=== PATIENT | female | born 1995 | race African-American/Black ===

== ENCOUNTER 2020-06-25 12:59 | Outpatient (CLI) | payer OTHER, SELFPAY ==
--- NOTE | ~2020-06-25 | US_ITS ---
EXAMINATION: US venous doppler LE EXAM DATE: 06/25/2020 13:38 INDICATION: Bilateral leg pain. TECHNIQUE: Multiple grayscale, color flow and Doppler images of the lower extremity deep venous syste ms bilaterally were obtained and reviewed. There is no prior study for comparison. FINDINGS: Right side: The right common femoral, femoral and profunda veins demonstrate normal color flow, respi ratory variation, augmentation and compressibility. Compressibility, color flow confirmed within the right popliteal, posterior tibial, peroneal, and greater saphenous veins. Left side: The left common femoral, femoral and profunda veins demonstrate normal color flow, respira tory variation, augmentation and compressibility. Compressibility, color flow confirmed within the l eft popliteal, posterior tibial, peroneal, and greater saphenous veins. IMPRESSION: 1. No lower extremity deep venous thrombosis bilaterally. Reviewed, dictated and finalized at location A.
== END 2020-06-25 13:00 | disposition home or self-care (01) ==
DX: M79.604 Pain in right leg (principal); M79.605 Pain in left leg; Z86.718 Personal history of other venous thrombosis and embolism
CPT/HCPCS: 93970

== ENCOUNTER 2020-07-03 09:29 | Emergency (ER) | payer OTHER, SELFPAY ==
--- NOTE | ~2020-07-03 | US_ITS ---
EXAMINATION: US OB >= 14 weeks Fetus DATE: 07/03/2020 11:07 INDICATION: Vaginal bleeding and second trimester of TECHNIQUE: Real-time ultrasound of the pelvis was performed. The interpreting radiologist was not pre sent for the study. COMPARISON: None. FINDINGS: There is a single living fetus in breech presentation. The placenta is anterior. heart rate is 138 beats per minute (bpm). The amniotic fluid index is 17.3 cm, which is normal (5th%-95%: 9.3-21. 2 cm at 20 weeks estimated gestational age). The following biometric data were obtained: BPD: 4.8 cm -> 20 weeks 4 days Head circumference: 18.0 cm -> 20 weeks 3 days Abdominal circumference: 15.7 cm -> 20 weeks 6 days Femur length: 3.4 cm -> 20 weeks 5 days These measurements are concordant. Head circumference to abdominal circumference ratio: 1.14 (normal range 1.06-1.25). Estimated weight: 373 g (+/-) 56 g. or 13 oz. (+/-) 2 oz. IMPRESSION: 1. Single living fetus in breech presentation with heart rate of 138 bpm. 2. Gestational age by ultrasound of 20 weeks 5 day(s) +/- 1 week(s) 3 day(s) with ultrasound estimate d date of delivery (LAUREN) of 11/15/2020. Estimated weight is 54th percentile by Hadlock criteria when 11/16/2020 is used as the LAUREN. Please correlate with clinical information or earlier ultrasounds for most accurate LAUREN. 3. Normal amniotic fluid index of 17.3 cm. Reviewed, dictated and finalized at location B. IMPRESSION: 1. Single living fetus in breech presentation with heart rate of 138 bpm. 2. Gestational age by ultrasound of 20 weeks 5 day(s) +/- 1 week(s) 3 day(s) wi th ultrasound estimated date of delivery (LAUREN) of 11/15/2020. Estimated we ight is 54th percentile by Hadlock criteria when 11/16/2020 is used as the LAUREN. Please correlate with clinical information or earlier ultrasounds for most accu rate LAUREN. 3. Normal amniotic fluid index of 17.3 cm.
[2020-07-03 09:33] VITALS: BP 138/113; PULSE 105; RESP 18; TEMP 35.8
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
[2020-07-03] MEDS: SODIUM CHLORIDE 0.9% IV 1,000 ML 999 ML IV CONT (10:18)
[2020-07-03 10:22] LABS: Basophils Percent Auto 0.4 % (0.2-1.2); Eosinophils Absolute Auto 0.2 K/mm3 (0-0.3); Hematocrit 39.4 % (37.0-47.0); Hemoglobin 13.2 g/dL (12.0-15.0); Immature Granulocyte Absolute 0.01 K/mm3 (0.00-0.031); Immature Granulocyte Percent A 0.2 % (0-0.5); Lymphocytes Absolute Auto 1.75 K/mm3 (0.9-3.2); Lymphocytes Percent Auto 33.1 % (18.3-44.2); Mean Corpuscular HGB Conc 33.5 g/dl (32-36); Mean Corpuscular Hemoglobin 30.8 pg (26-34); Mean Corpuscular Volume 92.1 fl (80-100); Mean Platelet Volume 9.9 fl (7.4-10.4); Monocytes Absolute Auto 0.4 K/mm3 (0.1-0.6); Monocytes Percent Auto 7.4 % (2.6-8.5); Neutrophils Absolute Auto 2.9 K/mm3 (1.3-6.7); Neutrophils Percent Auto 54.9 % (45.5-73.1); Platelet Count Result 195 k/mm3 (150-375); Red Blood Count 4.28 M/mm3 (4.2-5.4); Red Cell Distribution Width 14.3 % (11.5-14.5); White Blood Count 5.3 K/mm3 (4.5-10.0)
[2020-07-03 10:33] LABS: Alanine Aminotransferase 8 U/L (4-35); Alkaline Phosphatase 55 U/L (38-126); Anion Gap 5 mmol/L (8-16); Aspartate Amino Transferase 22 U/L (14-36); Bilirubin,Total 0.2 mg/dL (0.2-1.3); Blood Urea Nitrogen 3 mg/dL (7-17); Calcium 8.3 mg/dL (8.4-10.2); Carbon Dioxide 24 mmol/L (22-30); Chloride 106 mmol/L (98-107); Estimated CRCL calculation 113 ml/min; Estimated Glomerular Filt Rate > 60; Glucose 81 mg/dL (65-105); Potassium 4.1 mmol/L (3.4-5.0); Sodium 135 mmol/L (137-145)
--- NOTE | 2020-07-03 10:49 | PC.NURSE ---
Pt to ultrasound at this time.
[2020-07-03 12:40] VITALS: BP 124/62; PULSE 65; RESP 17; O2SAT 97
== END 2020-07-03 12:41 | disposition home or self-care (01) ==
PROVIDERS: Emergency Medicine Emergency Medical Services; Emergency Provider Emergency Medicine; PCP Obstetrics & Gynecology
DX: O26.892 Other specified pregnancy related conditions, second trimester (principal); R10.30 Lower abdominal pain, unspecified; O99.612 Diseases of the digestive system complicating pregnancy, second trimester; K62.5 Hemorrhage of anus and rectum; O99.332 Smoking (tobacco) complicating pregnancy, second trimester; F17.290 Nicotine dependence, other tobacco product, uncomplicated; Z3A.19 19 weeks gestation of pregnancy
CPT/HCPCS: 36415; 76805; 80053; 84702; 85025; 85461; 87070; 87491; 87591; 87808; 96374; 99284; J0131; J7030

== ENCOUNTER 2020-10-06 22:10 | Observation (INO) | payer OTHER, SELFPAY ==
[2020-10-06] VITALS (7 sets, daily range): BP systolic 93–115; BP diastolic 59–65; PULSE 74–110; RESP 16–18; TEMP 36.8; BMI 21.8
--- NOTE | 2020-10-06 22:10 | OBADM ---
This patient, Madhuri Díaz, admitted to the OB room [facility] for observation. Patient/family oriented to hospital policies and general routines including ID bracelet, bed and alarms, visiting hours, pain management, procedures, bathroom and other care routines, personal items, smoking policy, room service/diet, and visiting hours. Patient/Family are encouraged to report perceived risks to care and to ask questions if they do not understand what they are told or what they should do.
[2020-10-06] MEDS: LACTATED RINGERS 1,000 ML 999 ML IV CONT (22:55)
[2020-10-07] MEDS: TERBUTALINE SULFATE 1 MG/ML VIAL 0.25 MG SUB-Q ×3 (00:35→01:29)
[2020-10-07 00:37] VITALS: BP 94/60; PULSE 110
[2020-10-07 01:00] VITALS: PULSE 123
[2020-10-07 01:02] VITALS: BP 105/43; PULSE 82
[2020-10-07 01:30] VITALS: BP 99/49; PULSE 98
[2020-10-07 02:00] VITALS: BP 96/47; PULSE 102
--- NOTE | 2020-10-15 11:21 | PM.OBTRLD ---
OB - Triage/Final Diagnosis Visit Information Comments/Additional reasons for admission: I have assessed the risk for this patient, Madhuri Díaz, and determined that she would benefit from observation care. Final Diagnosis (1) contractions: Code(s): O47.00 - False labor before 37 completed weeks of gestation, unspecified trimester Status: Acute
== END 2020-10-07 02:29 | disposition home or self-care (01) ==
PROVIDERS: Admitting Provider Obstetrics & Gynecology; Visit Provider Obstetrics & Gynecology
DX: O47.00 False labor before 37 completed weeks of gestation, unspecified trimester (principal); Z3A.00 Weeks of gestation of pregnancy not specified
CPT/HCPCS: 96361; 96372; 96374; G0378; G0379; J0131; J3105; J7120

== ENCOUNTER 2021-08-14 16:19 | Outpatient (CLI) | payer OTHER, SELFPAY ==
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
== END 2021-08-14 16:20 | disposition home or self-care (01) ==
LOC: ANHIMG 16:20
PROVIDERS: Visit Provider Plastic Surgery
DX: Z18.12 Retained nonmagnetic metal fragments (principal)
CPT/HCPCS: 73090

== ENCOUNTER 2023-10-25 19:58 | Emergency (ER) | payer SELFPAY ==
--- NOTE | ~2023-10-25 | CT_ITS ---
CT of the Abdomen and Pelvis: Indication: Right lower quadrant pain Technique: 2.5 mm axial scans were obtained through the abdomen and pelvis following intravenous adm inistration of 100 cc of Omnipaque 350. Dose reduction technique was used on this scan by utilizing a utomated exposure control and iterative reconstruction technique. The dose-length product (DLP) was 1 85.90 mGy-cm. Findings: Scans through the lung bases are unremarkable. The liver, spleen, pancreas, gallbladder, adrenals and kidneys are within normal limits. No evidence of aortic aneurysm. No lymphadenopathy. No bowel obstruction or bowel wall thickening. There is no evidence to suggest acute appendicitis. Images through the pelvis were performed. Urinary bladder unremarkable. 3.1 cm right adnexal cyst pre sent. No ascites. Impression: 3.1 cm right adnexal cyst. Reviewed, dictated and finalized at location . Impression: 3.1 cm right adnexal cyst.
[2023-10-25 20:12] VITALS: BP 96/53; PULSE 63; RESP 16; TEMP 36.4; O2SAT 98
[2023-10-25 20:19] LABS: BEDSIDEPREGUCG Negative
[2023-10-25 20:28] LABS: Appearance Urine Cloudy (Clear); Bacteria Urine 2+ /hpf; Bilirubin Urine Negative (Negative); Blood Urine Negative (Negative); Color Urine Yellow (Yellow); Glucose Urine UA Negative (Negative); Ketones Urine Trace mg/dL (Negative); Leukocyte Esterase Ur Trace LEU/UL (Negative); Nitrate Urine Negative (Negative); Non Pathogenic Casts 0-2; Protein Urine Trace mg/dL (Negative); RBC Urine 0-2 /hpf (0-2); Specific Grav Ur 1.024 (1.001-1.035); Squamous Epithelial Cell Urine Moderate /hpf (Few)
[2023-10-25 20:32] LABS: Basophils Percent Auto 0.5 % (0.2-1.2); Eosinophils Absolute Auto 0.2 K/mm3 (0-0.3); Eosinophils Percent Auto 2.6 % (0-4.4); Hematocrit 42.7 % (37.0-47.0); Hemoglobin 14.5 g/dL (12.0-15.0); Immature Granulocyte Absolute 0.01 K/mm3 (0.00-0.031); Immature Granulocyte Percent A 0.2 % (0-0.5); Lymphocytes Absolute Auto 2.44 K/mm3 (0.9-3.2); Mean Corpuscular Hemoglobin 31.5 pg (26-34); Mean Corpuscular Volume 92.6 fl (80-100); Mean Platelet Volume 9.9 fl (7.4-10.4); Monocytes Absolute Auto 0.5 K/mm3 (0.1-0.6); Monocytes Percent Auto 8.3 % (2.6-8.5); Neutrophils Absolute Auto 2.6 K/mm3 (1.3-6.7); Neutrophils Percent Auto 45.4 % (45.5-73.1); Platelet Count Result 160 k/mm3 (150-375); Red Blood Count 4.61 M/mm3 (4.2-5.4); Red Cell Distribution Width 13.3 % (11.5-14.5); White Blood Count 5.7 K/mm3 (4.5-10.0)
[2023-10-25 20:42] LABS: Alanine Aminotransferase 13 U/L (6-35); Albumin Level 4.5 g/dL (3.5-5.1); Alkaline Phosphatase 60 U/L (38-126); Anion Gap 10 mmol/L (4-12); Aspartate Amino Transferase 23 U/L (14-36); Bilirubin,Total 0.5 mg/dL (0.2-1.3); Blood Urea Nitrogen 8 mg/dL (7-17); Calcium 8.6 mg/dL (8.4-10.2); Carbon Dioxide 24 mmol/L (22-30); Chloride 103 mmol/L (98-107); Estimated CRCL calculation 82 ml/min; Estimated Glomerular Filt Rate > 60; Glucose 93 mg/dL (65-110); Lipase 38 U/L (23-300); Potassium 3.6 mmol/L (3.4-5.0); Sodium 137 mmol/L (137-145)
[2023-10-25 20:43] LABS: Add Urine Microscopic? YES
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
[2023-10-25] MEDS: SODIUM CHLORIDE 0.9% IV 1,000 ML 999 ML IV CONT (23:58)
[2023-10-25 23:59] VITALS: BP 99/67; PULSE 61; RESP 13; O2SAT 100
[2023-10-26] MEDS: CEPHALEXIN 500 MG CAPSULE PO (02:37)
== END 2023-10-26 02:48 | disposition home or self-care (01) ==
PROVIDERS: Student in an Organized Health Care Education/Training Program; Emergency Provider Physician Assistant
DX: R10.31 Right lower quadrant pain (principal); Z90.49 Acquired absence of other specified parts of digestive tract; R82.998 Other abnormal findings in urine
CPT/HCPCS: 36415; 74177; 80053; 81001; 81025; 83690; 85025; 87086; 96360; 96361; 99284; A9270; J7030; Q9967